=== PATIENT | male | born 1950 | race Caucasian/White ===

== ENCOUNTER 2023-07-15 19:37 | Emergency (ER) | payer MEDICARE, SELFPAY ==
[2023-07-15] VITALS (7 sets, daily range): BP systolic 115–161; BP diastolic 58–67; BMI 27.5
--- NOTE | 2023-07-15 20:35 | ED.GENMED ---
History of Present Illness
General
Chief Complaint: Breathing Problem
Source: patient
Exam Limitations: none
Time Seen by Provider: 07/15/23 20:15
Travel History
Have you had any contact with someone who has COVID-19?: No
Do you have any symptoms of coronavirus? Fever > 100 degrees, chills, cough, shortness of breath, sore throat, loss of taste or smell, muscle aches, or headache?: No
History of Present Illness
History of Present Illness:
This is a 72 year old male that comes in with c/o Cough. States that he awoke at 3am with coughing. States that it was a nonproductive cough. States that he uses his albuterol inhaler and went back to sleep until 6:30am when he awoke again coughing.
States that he has been coughing all day and had a headache and lightheadedness. States that his Pulse ox was 92% at home and went down to 88%. States that he felt SOB with the coughing. Denies any fever, chills, chest pain, abd pain, nausea,
vomiting, diarrhea, urinary burning.
Past History
Past History
ED Past Medical History: Asthma and Other (Sleep apnea, )
ED Past Surgical History: Appendectomy, Bowel resection (right Hemicolectomy), Cholecystectomy and Urological (Partial Left Nephrectomy)
Social History
Tobacco: Non-smoker
Alcohol: None
Personal:
Living: with family
Review of Systems
Review of Systems
All Other Systems: ROS reviewed and negative except as documented in HPI and ROS
Constitutional: Reports no symptoms; Denies fever or chills
EENT: Reports no symptoms
Respiratory: Reports cough and trouble breathing
Cardiac: Denies chest pain
ABD/GI: Reports no symptoms; Denies abdominal pain, nausea, vomiting or diarrhea
: Reports no symptoms; Denies dysuria, frequency or urgency
Musculoskeletal: Reports no symptoms
Skin: Reports no symptoms
Neurological: Reports headache and other (Lightheaded); Denies dizzy
Psychiatric: Reports no symptoms
Phy Exam
General Physical Exam
General Presentation: well appearing and no apparent distress (Patient talking without any distress. No sign of SOB)
General age: appears stated age
General Skin: warm and dry
General Habitus: normal
General Mental: alert
General Hydration: appears well hydrated
ENT Exam
ENT Exam: TM's normal, pharynx normal and neck supple
Eye Exam
Eye Exam: EOMI
Cardiovascular Exam
Cardiovascular Exam: regular rate/rhythm, no edema, no murmur and normal peripheral pulses
Pulmonary Exam
Pulmonary Exam: no respiratory distress, chest non tender, no rhonchi, no wheezing and other (Dry cough noted Very slight crackles left base)
Gastrointestinal Exam
Gastrointestinal Exam: normal bowel sounds, non tender, soft, no organomegaly, no pulsatile mass and non distended
Musculoskeletal Exam
Musculoskeletal Exam: full ROM and no edema
Skin Exam
Skin Exam: normal color, warm/dry, no rash and no petechia
Psychiatric Exam
Psychiatric Exam: normal mood/affect
Scores
Heart Failure Risk
Heart Failure Risk Score: Not Applicable
Course
Orders/Labs/Results
Orders:
Orders
07/15/23 20:34
CR Chest - 2 Views Urgent
Comment:
Reason For Exam: fever, cough
07/15/23 20:35
Electrocardiogram (*1) Urgent
Reason for Study: Shortness of Breath
EKG- Treatment ONCE
07/15/23 20:38
Dexamethasone Sod Phosphate [Decadron] 20 mg IV NOW STA
Ipratropium/Albuterol Sulfate [Duoneb] 3 ml INH R NOW ONE
07/15/23 20:39
COVID-19 Antigen Urgent
Source: Nasal Swab
Complete Blood Count/With Diff Urgent
Comprehensive Metabolic Panel Urgent
Troponin I Urgent
Influenza A+B Rapid Molecular Urgent
SONJA Source: Nasal Swab
Specimen Description:
07/15/23 22:33
CT Chest Pe Study Urgent
Comment:
Reason For Exam: cOUGH, sob
Abnormal Lab Results
07/15/23
20:39
RBC 4.61 L 10^6/uL
(4.70-6.10)
Absolute Lymphs (auto) 0.6 L 10^3/uL
(1.2-3.4)
Neutrophils % 79.3 H %
(42.2-75.2)
Lymphocytes % 8.6 L %
(20.5-51.1)
07/15/23 20:39
07/15/23 20:39
Vital Signs
Initial and Last Documented VS:
Initial Vital Signs
Temp Pulse Resp BP Pulse Ox
100.7 F H 93 16 161/65 95
07/15/23 19:39 07/15/23 19:39 07/15/23 19:39 07/15/23 19:39 07/15/23 19:39
Last Documented Vital Signs
Temp Pulse Resp BP Pulse Ox
100.7 F H 86 25 123/59 92
07/15/23 19:39 07/15/23 23:00 07/15/23 23:00 07/15/23 23:00 07/15/23 23:00
MDM/Problems Addressed
Differential Diagnosis Includes:
COVID, Influenza, PNA
MDM/Problems Addressed:
This is a 72 year old male that comes in with c/o cough. States that he started at 3am today and has been coughing throughout the day. States that he has a headache and felt lightheaded.
Will get labs, Chest x-ray, give Duo neb and IV steroids.
Back into see patient. Patient state that he is concerned that his Pulse ox is only 91%. Patient states that he did feel better after the neb treatment and his pulse ox went up. States that with his sleep apnea he is concerned that he could throw a
clot. Will get CT of the chest.
Back into see patient. Reviewed CT scan with patient. There is some bronchitis. Will treat with anibiotics. Patient is aware of the Thyroid nodule and is being monitored. Explained to patient that he can go home. Will place on Steroids for the
next 5 days. Patient to use his Albuterol inhaler for coughing. Follow up with the family doctor for recheck. RETURN WITH ANY CONCERNS.
Chronic conditions affecting care: Asthma
Acute Exacerbation and/or Progression of Chronic Illness: Asthma
*Radiology
Radiology exam reviewed: preliminary read by ED provider (Questionable right lower lobe Pneumonia. ), radiology read reviewed (chest- No acute cardiopulmonary process. CT chest night hawk- Technically good contrast opacification of the
pulmonary arteries. No pulmonary embolism. No acute thoracic aortic pathology. coronary artery calcifications. Normal size heart. Pericardium appears within normal limits. No evidence for), all reviewed NAD by ED Provider (CT cont-Pneumonia or
pulmonary edema. Mild bilateral airway thickening with multifocal mucus plugging. Could signify bronchitis/bronchiolitis or asthma. No pleural effusion or pneumothorax. Incident note is made of a large low-attenuation left thyroid lesion measuring
approximately 5.5X4.2X4.1 cm in) and other (CT cont- size. Demonstrates a few small peripheral punctate and curvilinear calcifications. Nonspecific. Consider outpatient follow-up thyroid ultrasound for further evaluation. No acute ab normality in
the visualized upper abd. Incompletely evaluated probable left renal cyst. Cholecystectomy)
*Pulse Oximetry
Patient hypoxic: no
*Hair Mixer Interpretation
Rate: normal
Heart Rate: 94
Rhythm: sinus
*Critical Care Note
Total Time (30-74mins, 75-104mins- exclusive of procedures): Not Applicable
ED Attending Note
-
Portions of this chart may have been created with voice recognition software.� Occasional wrong word or��sound alike� substitutions may have occurred due to the inherent limitations of voice recognition software.
Discharge Plan
Departure
Patient Disposition: Home (Routine Discharge)
Date of Disposition: 07/16/23
Time of Disposition: 00:35
Patient with high blood pressure during this ER visit?: No
Condition: Good
Covid-19: Negative COVID-19
Discharge Problem:
Cough, Bronchitis
Instructions: Acute Bronchitis, Adult (DC), Cough, Adult (DC)
Prescriptions:
New
prednisone 20 mg tablet
40 mg PO DAILY Qty: 10 0RF
amoxicillin-pot clavulanate 875-125 mg tablet
1 tab PO BID Qty: 19 0RF
Referrals:
Filipe Valverde MD [Family Provider] - Follow up in 2-3 days
Activity Restrictions/Additional Instructions:
As discussed, your blood work is normal. Your CT of the chest is negative for any pulmonary embolism or Pneumonia. But there is some bronchitis noted. You will be given an antibiotic for this. . You do have a Thyroid nodule that you have stated you
are aware of. Please increase your water intake to 8-8oz glasses daily. You have been given IV steroids here and a prescription has been sent to your Pharmacy for Prednisone to take daily. Follow up with the family doctor for recheck. Please use
your Albuterol inhaler for increased coughing or wheezing. IF YOU HAVE ANY OTHER CONCERNS PLEASE RETURN TO THE EMERGENCY ROOM.
Interventions
Interventions:
*Risk Screen - Suicide Last Done: 07/15/23 19:39
*General Assessment Last Done: 07/15/23 20:26
*Neglect/Abuse Screening Last Done: 07/15/23 19:39
ED- Fall Risk Assessment Last Done: 07/15/23 20:26
*ED COVID-19 Vaccine History Last Done: 07/15/23 19:39
ED- Cardiac Assessment Last Done: 07/15/23 20:26
ED- Pulmonary Assessment Last Done: 07/15/23 20:26
[2023-07-15] MEDS: DECADRON 20 MG IV (20:46)
[2023-07-15] MEDS: DUONEB 3 ML INH (20:46)
[2023-07-15 20:50] LABS: % Basophils 0.7 % (0-2); % Eosinophils 2.7 % (0-6); % Immature Granulocytes 0.4 % (0-0.5); % Lymphocytes 8.6 % (20.5-51.1); % Monocytes 8.3 % (1.7-9.3); % Neutrophils 79.3 % (42.2-75.2); Absolute Basophils 0.1 10^3/uL (0-0.2); Absolute Eosinophils 0.2 10^3/uL (0-0.7); Absolute Lymphocytes 0.6 10^3/uL (1.2-3.4); Absolute Monocytes 0.6 10^3/uL (0.1-0.6); Absolute Neutrophils 5.8 10^3/uL (1.4-6.5); Hematocrit 40.2 % (39.0-52.0); Hemoglobin 14.1 g/dL (13.0-18.0); Mean Corp Hgb Conc. 35.1 g/dL (33.0-37.0); Mean Corpuscular Hgb 30.6 pg (27.0-31.0); Mean Corpuscular Volume 87.2 fL (80.0-94.0); Mean Platelet Volume 9.9 fL (7.4-10.4); Nucleated Red Blood Cells % 0 % (-); Platelet Count 240 10^3/uL (130-400); Red Blood Cell Count 4.61 10^6/uL (4.70-6.10); Red Cell Dist. Width 12.5 % (11.5-14.5); White Blood Cell Count 7.3 10^3/uL (4.8-10.8)
[2023-07-15 21:09] LABS: ALT (SGPT) 19 U/L (0-50); AST (SGOT) 21 U/L (17-59); Albumin 4.3 g/dl (3.5-5.0); Alkaline Phosphatase 44 U/L (38-126); Blood Urea Nitrogen 17 mg/dl (9-20); Calcium 9.1 mg/dl (8.4-10.2); Carbon Dioxide 28 mmol/L (22-30); Chloride 102 mmol/L (98-107); Estimated Creatinine Clearance 59 ml/min; Glucose 96 mg/dl (70-99); Potassium 4.1 mmol/L (3.5-5.1); Sodium 136 mmol/L (135-145); Total Bilirubin 0.7 mg/dl (0.2-1.3); Total Protein 6.8 g/dl (6.3-8.2); eGFR > 60.00
[2023-07-15 21:14] LABS: COVID-19 Antigen Negative (Negative)
[2023-07-15 21:17] LABS: Troponin I < 0.012 ng/ml
[2023-07-16] VITALS: BP 110/71
[2023-07-16] MEDS: AUGMENTIN 875 MG/125 MG 1 TABLET PO (00:47)
== END 2023-07-16 00:58 | disposition home or self-care (01) ==
LOC: EMR 19:37
PROVIDERS: Clinical Nurse Specialist Family Health; EMERGENCY PHYSICIAN Emergency Medicine; FAMILY PHYSICIAN Internal Medicine
DX: R05.9 Cough, unspecified (principal); J40 Bronchitis, not specified as acute or chronic; J45.909 Unspecified asthma, uncomplicated
CPT/HCPCS: 99285; 96374; 94640; 71046; 71275; 80053; 84484; 85025; 87502; 87811; 93005; Q9967

== ENCOUNTER 2024-04-26 18:48 | Emergency (ER) | payer MEDICARE, SELFPAY ==
[2024-04-26 18:50] VITALS: BP 179/84
--- NOTE | 2024-04-26 20:15 | ED.GENMED ---
History of Present Illness
General
Chief Complaint: Male Genito-Urinary Symptoms
Time Seen by Provider: 04/26/24 19:53
History of Present Illness
History of Present Illness:
73-year-old male presents the emergency department for evaluation of urinary retention that began abruptly at approximately 2 PM today. Has been unable to void since then. Has known BPH. Did take 2 doses of Flomax prior to coming to the emergency
department.
Past History
Past History
ED Past Medical History: Asthma and Other (Sleep apnea, )
ED Past Surgical History: Appendectomy, Bowel resection (right Hemicolectomy), Cholecystectomy and Urological (Partial Left Nephrectomy)
Social History
Tobacco: Non-smoker
Alcohol: None
Personal:
Living: with family
Review of Systems
Review of Systems
Allergies reviewed?: Yes
All Other Systems: ROS reviewed and negative except as documented in HPI and ROS
Phy Exam
Physical Exam
Physical Exam:
GEN: Well appearing, NAD, WDWN
HEENT: Oral mucosa moist, no scleral icterus
Cardiac: Regular rate
Lung: No respiratory distress, no tachypnea
MSK: No gross deformity or injuries
Skin: Good color, no pallor or jaundice, no rashes
Neuro: AO x3, moves all extremities freely
Psych: Calm, cooperative
Course
Orders/Labs/Results
Orders:
Orders
04/26/24 20:14
Fosfomycin [Monurol] 3 gm PO ONCE ONE
04/26/24 20:15
Webster Placement- Treatment ONCE
Reason for insertion: Acute Retention
04/26/24 20:32
Urine Culture Urgent
SONJA Source: Urine
Specimen Description:
Obtained by: Indwelling Catheter
Date Specimen was Collected: 04/26/24
Time Specimen was Collected: 20:23
Vital Signs
Initial and Last Documented VS:
Initial Vital Signs
Temp Pulse Resp BP Pulse Ox
98.2 F 83 16 179/84 99
04/26/24 18:50 04/26/24 18:50 04/26/24 18:50 04/26/24 18:50 04/26/24 18:50
Last Documented Vital Signs
Temp Pulse Resp BP Pulse Ox
98.2 F 83 16 179/84 99
04/26/24 18:50 04/26/24 18:50 04/26/24 18:50 04/26/24 18:50 04/26/24 18:50
MDM/Problems Addressed
MDM/Problems Addressed:
Webster catheter placed with return of greater than 1 L of urine. Symptoms resolved. Will give the patient a single dose fosfomycin for prophylaxis of infection, he has previously scheduled urology follow-up on Wednesday, urine culture sent
*Critical Care Note
Total Time (30-74mins, 75-104mins- exclusive of procedures): Not Applicable
ED Attending Note
-
Portions of this chart may have been created with voice recognition software.� Occasional wrong word or��sound alike� substitutions may have occurred due to the inherent limitations of voice recognition software.
Discharge Plan
Departure
Patient Disposition: Home (Routine Discharge)
Date of Disposition: 04/26/24
Time of Disposition: 20:15
Patient with high blood pressure during this ER visit?: No
Discharge Problem:
Acute urinary retention
Instructions: How to Care for Your Webster Catheter, Male, Urinary Retention (DC)
Prescriptions:
No Action
prednisone 20 mg tablet
40 mg PO DAILY Qty: 10 0RF
amoxicillin-pot clavulanate 875-125 mg tablet
1 tab PO BID Qty: 19 0RF
Activity Restrictions/Additional Instructions:
Take flomax daily
Follow up with your urologist Wednesday as planned
Interventions
Interventions:
*Risk Screen - Suicide Last Done: 04/26/24 18:50
*Neglect/Abuse Screening Last Done: 04/26/24 18:50
ED- Fall Risk Assessment Last Done: 04/26/24 19:50
*Nursing Disposition Last Done: 04/26/24 20:51
ED-Male Genitourinary Assessment Last Done: 04/26/24 19:50
Discharge Date and Time
Print Language: QATARI
[2024-04-26] MEDS: MONUROL 3 GM PO (20:30)
== END 2024-04-26 20:51 | disposition home or self-care (01) ==
LOC: EMR 18:48
PROVIDERS: EMERGENCY PHYSICIAN Emergency Medicine; FAMILY PHYSICIAN Urology
DX: N40.1 Benign prostatic hyperplasia with lower urinary tract symptoms (principal); R33.8 Other retention of urine; J45.909 Unspecified asthma, uncomplicated; G47.30 Sleep apnea, unspecified; Z90.49 Acquired absence of other specified parts of digestive tract; Z90.5 Acquired absence of kidney
CPT/HCPCS: 51702; 99283; 87086

== ENCOUNTER 2024-08-22 08:02 | Outpatient (RCR) | payer MEDICARE, SELFPAY | END 2024-08-22 23:59 | disposition home or self-care (01) | LOC: RPT 08:02 | PROVIDERS: ATTENDING PHYSICIAN Urology; FAMILY PHYSICIAN Internal Medicine | DX: R32 Unspecified urinary incontinence (principal); Z73.6 Limitation of activities due to disability | CPT/HCPCS: 97014; 97110; 97112; 97140; 97163; 97530 ==

== ENCOUNTER 2024-09-21 06:44 | Outpatient (RCR) | payer MEDICARE, SELFPAY | END 2024-09-21 23:59 | disposition home or self-care (01) | LOC: RPT 06:44 | PROVIDERS: ATTENDING PHYSICIAN Urology; FAMILY PHYSICIAN Internal Medicine | DX: R32 Unspecified urinary incontinence (principal); Z73.6 Limitation of activities due to disability; M62.81 Muscle weakness (generalized) | CPT/HCPCS: 97014; 97110; 97112; 97530 ==

== ENCOUNTER 2024-10-26 07:14 | Outpatient (RCR) | payer MEDICARE, SELFPAY | END 2024-10-26 23:59 | disposition home or self-care (01) | LOC: RPT 07:14 | PROVIDERS: ATTENDING PHYSICIAN Urology; FAMILY PHYSICIAN Internal Medicine | DX: R32 Unspecified urinary incontinence (principal); M62.81 Muscle weakness (generalized); Z73.6 Limitation of activities due to disability | CPT/HCPCS: 97014; 97112; 97140; 97530 ==

== ENCOUNTER 2024-11-16 07:23 | Outpatient (RCR) | payer MEDICARE, SELFPAY | END 2024-11-16 23:59 | disposition home or self-care (01) | LOC: RPT 07:23 | PROVIDERS: ATTENDING PHYSICIAN Urology; FAMILY PHYSICIAN Internal Medicine | DX: R32 Unspecified urinary incontinence (principal); M62.81 Muscle weakness (generalized); Z73.6 Limitation of activities due to disability | CPT/HCPCS: 97014; 97112; 97530 ==

== ENCOUNTER 2024-12-14 07:15 | Outpatient (RCR) | payer MEDICARE, SELFPAY | END 2024-12-14 23:59 | disposition home or self-care (01) | LOC: RPT 07:15 | PROVIDERS: ATTENDING PHYSICIAN Urology; FAMILY PHYSICIAN Internal Medicine | DX: R32 Unspecified urinary incontinence (principal); M62.81 Muscle weakness (generalized); Z73.6 Limitation of activities due to disability | CPT/HCPCS: 97014; 97112; 97530 ==

== ENCOUNTER → 2025-04-18 15:09 | Outpatient (REF) | payer MEDICARE, SELFPAY | LOC: HWRAD 15:09 | PROVIDERS: ATTENDING PHYSICIAN Internal Medicine Endocrinology, Diabetes & Metabolism | DX: E04.1 Nontoxic single thyroid nodule (principal) | CPT/HCPCS: 76536 ==